=== PATIENT | female | born 1960 | race Caucasian/White ===

== ENCOUNTER 2023-09-01 10:04 | Observation (INO) ==
[~2023-09-01 10:04] MED LIST: Buffered Lidocaine 1% SYRIN 1 ml INTRADERM ONE; Lactated Ringers 1000 ml BAG 1,000 ML IV SCH
[2023-09-01] MEDS ORDERED: ceFAZolin 2 GM PREMIX 2 GM/50 ML BAG ONE (10:32)
[2023-09-01] MEDS ORDERED: Tranexamic Acid 1 GM/100ML BAG 2,000 MG/200 ML BAG IV ONE (10:32)
[2023-09-01] MEDS ORDERED: fentaNYL 100 mcg/2 ml 50 MCG/ML VIAL ONE ×3 (11:20→16:50)
[2023-09-01] MEDS ORDERED: Midazolam 2 mg/2 ml VIAL 1 mg/ml 2 ml VIAL (2 mg) ONE ×2 (11:20→12:51)
[2023-09-01] MEDS ORDERED: Phenylephrine 40 mcg/mL 10mL (400mcg) SYRINGE ONE (11:23)
[2023-09-01] MEDS ORDERED: Acetaminophen IV 1 GM/100ML 1,000 MG/100 ML BAG IV PRN (11:37)
[2023-09-01] MEDS ORDERED: Propofol 10 MG/ML 20 ML BTL ONE (11:37)
[2023-09-01] MEDS ORDERED: HYDROmorphone 1 MG/1 ML SYRINGE IV PRN (11:37)
[2023-09-01] MEDS ORDERED: Naloxone 0.4 mg VIAL 0.4 mg/ml 1 ml VIAL IV PRN (11:37)
[2023-09-01] MEDS ORDERED: fentaNYL 100 mcg/2 ml 50 MCG/ML VIAL IV PRN (11:37)
[2023-09-01] MEDS ORDERED: Ondansetron 4 mg VIAL 2 MG/ML 2 ml VIAL IV PRN (11:37)
[2023-09-01] MEDS ORDERED: Ondansetron 4 mg VIAL 2 MG/ML 2 ml VIAL ONE ×2 (11:58→14:07)
[2023-09-01] MEDS ORDERED: Lidocaine 2% PF 5 ML VIAL ONE (11:58)
[2023-09-01] MEDS ORDERED: Glycopyrrolate IV 0.2 MG/ML 1 ML VIAL ONE (11:58)
[2023-09-01] MEDS ORDERED: ROPIVACAINE 5 MG/ML 30 ML BTL (0.5%) ONE ×2 (12:06→13:03)
[2023-09-01] MEDS ORDERED: Dexamethasone IV 4 MG/ML VIAL 1 ml VIAL ONE (14:07)
[2023-09-01] MEDS ORDERED: KETAMINE HCL 10 MG/ML 20 ml VIAL (200 MG) ONE (14:19)
[2023-09-01] MEDS ORDERED: Acetaminophen IV 1 GM/100ML 1,000 MG/100 ML BAG IV ONE (14:27)
[2023-09-01] MEDS ORDERED: HYDROmorphone 0.5 MG/0.5 ML SYRINGE ONE (15:06)
[2023-09-01] MEDS ORDERED: Magnesium Hydroxide LIQ 30 ML UDC PO PRN (15:52)
[2023-09-01] MEDS ORDERED: Lactulose 30 ml UDC PO PRN (15:52)
[2023-09-01] MEDS ORDERED: Morphine 2 MG/ML SYRINGE IV PRN (15:52)
[2023-09-01] MEDS ORDERED: Prochlorperazine 5 mg/ml 2 ml VIAL (10 mg) IV PRN (15:57)
[2023-09-01] MEDS ORDERED: HYDROmorphone 1 MG/1 ML SYRINGE ONE ×2 (16:57→17:51)
[2023-09-01] MEDS: HYDROmorphone 1 MG/1 ML SYRINGE IV PRN ×8 (16:58→17:58)
[2023-09-01] MEDS: Lactated Ringers 1000 ml BAG 1,000 ML IV SCH (18:30)
[2023-09-01] MEDS: Magnesium Hydroxide LIQ 30 ML UDC PO SCH (22:09)
[2023-09-01] MEDS: ceFAZolin 1 GM ADVAN 1 GM in NS 0.9% 50 ML 50 ML IVPB SCH (22:10)
[2023-09-02] MEDS: Lactated Ringers 1000 ml BAG 1,000 ML IV SCH (04:47)
[2023-09-02] MEDS: ceFAZolin 1 GM ADVAN 1 GM in NS 0.9% 50 ML 50 ML IVPB SCH ×2 (05:52→14:18)
[2023-09-02 06:08] LABS: Hematocrit 33.1 % (35-45); Hemoglobin 11.3 g/dL (11.5-14.3); Mean Platelet Volume 8.4 fL (7.5-11.2); Platelet Count 191 10^3/uL (150-450)
[2023-09-02 06:34] LABS: Calcium 8.8 mg/dL (8.6-10.3); Creatinine, Serum 0.84 mg/dL (0.51-0.95)
[2023-09-02] MEDS: Magnesium Hydroxide LIQ 30 ML UDC PO SCH ×2 (08:49→20:49)
[2023-09-02] MEDS: Potassium Chlor 20 meq TAB.ER PO SCH (08:52)
[2023-09-02] MEDS: Vitamin THERAPEUTIC TAB PO SCH (08:52)
[2023-09-02] MEDS ORDERED: Influenza vaccine *QUAD* *2023-24* 0.5 ML SYRINGE IM ONE (09:00)
[2023-09-02] MEDS ORDERED: KCL 20 MEQ/100 ML IVPREMIX 20 MEQ/100 ML BAG IV SCH (10:00)
[2023-09-02] MEDS: KCL 10 MEQ/50 ML IVPREMIX 10 MEQ/50 ML BAG IV SCH ×4 (10:32→20:46)
[2023-09-03 06:25] LABS: Hematocrit 32.7 % (35-45); Hemoglobin 10.8 g/dL (11.5-14.3); Mean Platelet Volume 8.6 fL (7.5-11.2); Platelet Count 173 10^3/uL (150-450)
[2023-09-03] MEDS: Magnesium Hydroxide LIQ 30 ML UDC PO SCH (09:07)
[2023-09-03] MEDS: Potassium Chlor 20 meq TAB.ER PO SCH (09:08)
[2023-09-03] MEDS: Vitamin THERAPEUTIC TAB PO SCH (09:09)
[2023-09-03 09:54] VITALS: BP 127/81
== END 2023-09-03 13:45 | disposition home or self-care (01) ==
LOC: OR 10:04 → SSU 10:04 → EDSTATUS 14:30
PROVIDERS: ADMIT Orthopaedic Surgery Adult Reconstructive Orthopaedic Surgery; ATTEND Orthopaedic Surgery Adult Reconstructive Orthopaedic Surgery

== ENCOUNTER 2024-05-29 13:48 | Observation (INO) ==
[2024-05-29] MEDS: NS 0.9% 1000 ml BAG 1,000 ML IV ONE (14:31)
[2024-05-29] MEDS: Dexamethasone IV 4 MG/ML VIAL 1 ml VIAL IV SLOW PU ONE (14:32)
[2024-05-29] MEDS: Prochlorperazine 5 mg/ml 2 ml VIAL (10 mg) IV ONE (14:32)
[2024-05-29 17:30] LABS: ABS Lymphocytes 0.9 10^3/uL (1.0-4.8); ABS Monocytes 0.1 10^3/uL (0.0-0.9); ABS Neutrophils 4.9 10^3/uL (1.5-7.6); Eosinophil % 0.2 %; Hematocrit 39.8 % (35-45); Hemoglobin 13.4 g/dL (11.5-14.3); Lymphocyte % 15.9 %; Mean Corpuscular Hemoglobin 29.5 pg (27-33); Mean Corpuscular Hgb Conc 33.7 g/dL (31-36); Mean Corpuscular Volume 87.5 fL (80-97); Mean Platelet Volume 8.3 fL (7.5-11.2); Platelet Count 237 10^3/uL (150-450); Red Blood Count 4.55 10^6/uL (3.63-4.92); White Blood Count 5.9 10^3/uL (3.8-11.8)
[2024-05-29 18:00] LABS: Albumin/Globulin Ratio 1.3 (1-3); CRP High Sensitivity 4.84 mg/L (<2.00); Calcium 9.5 mg/dL (8.6-10.3); Creatinine, Serum 0.73 mg/dL (0.51-0.95); Potassium 3.6 mmol/L (3.5-5.0); Total Bilirubin 0.5 mg/dL (0.2-1.0); eGFR CKD-EPI 91.8 (>60)
[2024-05-29] MEDS: Acetaminophen IV 1 GM/100ML 1,000 MG/100 ML BAG IV ONE (18:22)
[2024-05-29 18:57] LABS: High Sensitivity Troponin 1 Hr 6 pg/mL (<15)
[2024-05-29] MEDS: Ondansetron 4 mg VIAL 2 MG/ML 2 ml VIAL IV ONE (19:10)
[2024-05-29] MEDS: Magnesium Sulfate IV 1GM/100ML 1 GM/100 ML BAG IV ONE (19:15)
[2024-05-29] MEDS: diazePAM INJ CARPUJECT 5 MG/ML SYRINGE IV ONE (22:12)
[2024-05-30] MEDS ORDERED: Senna TAB 8.6 mg TAB PO PRN (00:10)
[2024-05-30] MEDS ORDERED: Polyethylene Glycol 3350 17 GM PACKET PO PRN (00:10)
[2024-05-30] MEDS: Ondansetron 4 mg VIAL 2 MG/ML 2 ml VIAL IV PRN (02:41)
[2024-05-30 03:06] LABS: Urine Appearance No Cx Clear (Clear); Urine Bilirubin No Culture Negative (Negative); Urine Blood No Culture Negative (Negative); Urine Color No Culture Yellow; Urine Glucose No Culture Negative (Negative); Urine Ketones No Culture Negative (Negative); Urine Leukocytes No Culture Negative Leu/uL (Negative); Urine Nitrite No Culture Negative (Negative); Urine Protein No Culture Negative (Negative); Urine Specific Gravity No Cx 1.022 (1.002-1.030); Urine Urobilinogen No Cx Negative (Negative)
[2024-05-30 04:12] LABS: Ur Squamous Epithelial No Cx Present /HPF (Absent); Urine Bacteria No Culture Absent /HPF (Absent); Urine Red Blood Cell No Cult Trace(0-2/hpf) /HPF (0-Trace); Urine White Blood Cell No Cult Trace(0-5/hpf) /HPF (0-Trace)
[2024-05-30] MEDS: Potassium Chlor 20 meq TAB.ER PO SCH (10:56)
[2024-05-30] MEDS: Enoxaparin 40 MG/0.4 ML SYR SUBCUT SCH (10:58)
[2024-05-31 06:29] LABS: Calcium 9.5 mg/dL (8.6-10.3); Creatinine, Serum 0.88 mg/dL (0.51-0.95); Potassium 3.5 mmol/L (3.5-5.0); eGFR CKD-EPI 73.3 (>60)
[2024-05-31 10:21] VITALS: BP 136/80
== END 2024-05-31 13:25 | disposition home or self-care (01) ==
LOC: EDHOLD 13:48 → ED 13:48 → MED 05-30 12:54
PROVIDERS: ADMIT Internal Medicine; ATTEND Internal Medicine